=== PATIENT | female | born 1965 | race Caucasian/White ===

== ENCOUNTER 2017-02-26 21:19 | Inpatient (IN) | payer MEDICAID, OTHER ==
[~2017-02-26] VITALS: Ht 157.5 cm; Wt 89.8 kg
[~2017-02-26 21:19] MED LIST: ALPR0.5T8 PO; AMLO-512 PO; AMOX500C2 PO; CITA10TA68 PO; GLIP5 PO; INSLAN SQ
[2017-02-26] MEDS ORDERED: SIMV-259 PO (21:27)
[2017-02-26] MEDS ORDERED: METF500T4 PO (21:27)
[2017-02-26] MEDS ORDERED: LISI-661 PO (21:27)
[2017-02-26 21:37] LABS: GLUCOSE,POINT OF CARE 342 MG/DL (70-110)
[2017-02-26 21:38] LABS: BASOPHILS % (AUTO) 0.7 % (0.0-2.0); EOSINOPHILS % (AUTO) 2.3 % (1.0-6.0); HEMATOCRIT 41.3 % (36-46); LYMPHOCYTES # (AUTO) 3.8 K/uL (1.0-4.8); LYMPHOCYTES % (AUTO) 37.2 % (22.0-44.0); MEAN CORPUSCULAR HEMOGLOBIN 28.5 pg (26.0-34.0); MEAN CORPUSCULAR HGB CONC 33.8 G/dL (31.0-37.0); MEAN CORPUSCULAR VOLUME 84 fL (80-100); MONOCYTES # (AUTO) 0.5 K/uL (0.1-1.0); MONOCYTES % (AUTO) 4.6 % (2.0-9.0); NEUTROPHILS # (AUTO) 5.7 K/uL (1.8-7.7); NEUTROPHILS % (AUTO) 55.2 % (40.0-70.0); PLATELET COUNT (AUTO) 387 K/uL (150-450); RED CELL DISTRIBUTION WIDTH 12.6 % (11.5-14.5); WHITE BLOOD COUNT (AUTO) 10.3 K/uL (4.5-11.0)
[2017-02-26 21:47] LABS: ANION GAP 10 mmol/L (8-16); CALCIUM, TOTAL 9.1 mg/dL (8.8-10.5); CARBON DIOXIDE 25 mmol/L (22-29); CHLORIDE 98 mmol/L (98-107); CREATININE 0.95 mg/dL (0.60-1.30); GLOMERULAR FILTR. RATE CALC > 60 mL/min (>60); POTASSIUM 3.4 mmol/L (3.5-5.1); SODIUM SERUM 133 mmol/L (136-145); UREA NITROGEN, BLOOD 14 mg/dL (7-18)
[2017-02-26 21:53] LABS: ALANINE AMINOTRANSFERASE 40 U/L (12-78); ALBUMIN 4.1 g/dL (3.4-5.0); ASPARTATE AMINOTRANSFERASE 23 U/L (15-37); BILIRUBIN,TOTAL 0.3 mg/dL (0.1-1.0); TOTAL PROTEIN, SERUM 7.6 g/dL (6.4-8.2)
[2017-02-26 21:54] LABS: ACETAMINOPHEN < 3 mcg/mL (10-30)
[2017-02-26 22:09] LABS: SALICYLATE < 2.8 mg/dL (2.8-20.0)
[2017-02-26] MEDS ORDERED: INSULIN REGULAR, HUMAN 100 UNITS/ML SQ ONE (22:30)
[2017-02-26] MEDS ORDERED: POTASSIUM CHLORIDE 10% 40 MEQ/30 ML LIQUID UDCUP PO ONE (22:30)
[2017-02-26] MEDS ORDERED: HALOPERIDOL 5 MG TABLET PO PRN (23:30)
[2017-02-26] MEDS ORDERED: ZOLPIDEM TARTRATE 10 MG TABLET PO PRN (23:30)
[2017-02-26 23:37] LABS: GLUCOSE COMMENT 1 Doctor Notified; GLUCOSE,POINT OF CARE 270 MG/DL (70-110)
[2017-02-27 00:54] VITALS: BP 124/70
[2017-02-27] MEDS ORDERED: PNEUMOCOCCAL VACCINE POLYVALENT 0.5 ML VIAL [PPSV23] IM ONE (03:15)
[2017-02-27] MEDS ORDERED: INFLUENZA VIRUS VACCINE QVS 2017-18 (3YR+)/PF 60 MCG/0.5 ML SYRINGE IM ONE (03:15)
[2017-02-27 06:33] LABS: GLUCOSE COMMENT 1 Doctor Notified; GLUCOSE,POINT OF CARE 171 MG/DL (70-110)
[2017-02-27] MEDS: MetFORMIN HCL 500 MG TABLET PO SCH ×2 (07:12→16:18)
[2017-02-27 08:07] LABS: CHOL/HDL RATIO 5.4 (3.9-5.7)
[2017-02-27 08:30] VITALS: BP 124/82
[2017-02-27] MEDS: SIMVASTATIN 10 MG TABLET PO SCH (08:54)
[2017-02-27] MEDS: LISINOPRIL 10 MG TABLET PO SCH (08:54)
[2017-02-27] MEDS: AmLODIPine BESYLATE 5 MG TABLET PO SCH (08:54)
[2017-02-27] MEDS: ESCITALOPRAM OXALATE 10 MG TABLET PO SCH (09:46)
[2017-02-27 16:16] VITALS: BP 118/66
[2017-02-27] MEDS: GlipiZIDE 10 MG TABLET PO SCH (16:18)
[2017-02-28 06:23] VITALS: BP 120/66
[2017-02-28] MEDS: GlipiZIDE 10 MG TABLET PO SCH ×2 (06:24→16:10)
[2017-02-28] MEDS: MetFORMIN HCL 500 MG TABLET PO SCH ×2 (06:40→16:38)
[2017-02-28 08:30] VITALS: BP 117/70
[2017-02-28 09:44] LABS: POTASSIUM 4.5 mmol/L (3.5-5.1); THYROID STIMULATING HORMONE 1.32 uIU/mL (0.36-3.74)
[2017-02-28] MEDS: ESCITALOPRAM OXALATE 10 MG TABLET PO SCH (09:57)
[2017-02-28] MEDS: LISINOPRIL 10 MG TABLET PO SCH (09:57)
[2017-02-28] MEDS: SIMVASTATIN 10 MG TABLET PO SCH (09:58)
[2017-02-28] MEDS: AmLODIPine BESYLATE 5 MG TABLET PO SCH (09:58)
[2017-02-28] MEDS: LORazepam 2 MG TABLET PO PRN ×2 (10:53→16:09)
[2017-02-28 16:15] VITALS: BP 109/65
[2017-02-28] MEDS: INSULIN DETEMIR 100 UNITS/ML SQ SCH (17:12)
[2017-02-28 17:17] LABS: GLUCOSE,POINT OF CARE 197 MG/DL (70-110)
[2017-03-01 06:19] VITALS: BP 117/68
[2017-03-01] MEDS: GlipiZIDE 10 MG TABLET PO SCH (06:35)
[2017-03-01] MEDS: MetFORMIN HCL 500 MG TABLET PO SCH (07:09)
[2017-03-01 08:47] VITALS: BP 139/76
[2017-03-01] MEDS: SIMVASTATIN 10 MG TABLET PO SCH (08:47)
[2017-03-01] MEDS: LISINOPRIL 10 MG TABLET PO SCH (08:47)
[2017-03-01] MEDS: ESCITALOPRAM OXALATE 10 MG TABLET PO SCH (08:47)
[2017-03-01] MEDS: AmLODIPine BESYLATE 5 MG TABLET PO SCH (08:47)
[2017-03-01] MEDS: INSULIN DETEMIR 100 UNITS/ML SQ SCH (08:52)
[2017-03-01 09:38] LABS: GLUCOSE,POINT OF CARE 357 MG/DL (70-110)
[2017-03-01] MEDS: LORazepam 2 MG TABLET PO PRN (12:54)
[2017-03-01] MEDS ORDERED: ESCI10TA PO (15:56)
[2017-03-01] MEDS ORDERED: INSULIN DETEMIR 100 UNITS/ML SQ SCH (17:00)
[2017-03-01 18:06] VITALS: BP 117/83
== END 2017-03-01 18:00 | disposition home or self-care (01) | DRG 751 ==
LOC: EMS 21:20 → B3A 23:19
PROVIDERS: ADMIT Psychiatry & Neurology Child & Adolescent Psychiatry; ATTEND Psychiatry & Neurology Child & Adolescent Psychiatry
PROC: 3E0234Z Introduction of Serum, Toxoid and Vaccine into Muscle, Percutaneous Approach (ICD-10-PCS; principal; 2017-02-27)
DX: F32.2 Major depressive disorder, single episode, severe without psychotic features (principal); E87.1 Hypo-osmolality and hyponatremia; I10 Essential (primary) hypertension; E11.65 Type 2 diabetes mellitus with hyperglycemia; E78.5 Hyperlipidemia, unspecified; E87.6 Hypokalemia; K21.9 Gastro-esophageal reflux disease without esophagitis; F41.9 Anxiety disorder, unspecified; T46.6X2A Poisoning by antihyperlipidemic and antiarteriosclerotic drugs, intentional self-harm, initial encounter; Z88.8 Allergy status to other drugs, medicaments and biological substances; Z79.899 Other long term (current) drug therapy; Y92.89 Other specified places as the place of occurrence of the external cause; Z90.49 Acquired absence of other specified parts of digestive tract; Z98.891 History of uterine scar from previous surgery; Z23 Encounter for immunization
CPT/HCPCS: 82962; 83036; 84132; 84436; 84439; 84443; 90471; 93005; 96372; 99285; G0480; G0481; J1815

== ENCOUNTER 2018-01-16 09:31 | Emergency (ER) | payer MEDICAID ==
[~2018-01-16] VITALS: Ht 157.5 cm; Wt 81.8 kg
[~2018-01-16 09:31] MED LIST changes: -ALPR0.5T8 PO; -AMOX500C2 PO; -CITA10TA68 PO; +ESCI10TA PO; +LISI-661 PO; +METF-960 PO; +SIMV-259 PO
[2018-01-16 09:32] VITALS: BP 146/86
[2018-01-16] MEDS ORDERED: GABA-531 PO (09:36)
[2018-01-16] MEDS ORDERED: ALPR0.255 PO (09:36)
[2018-01-16] MEDS ORDERED: SUCR1TAB PO (09:36)
[2018-01-16 09:56] LABS: BASOPHILS % (AUTO) 1.2 % (0.0-2.0); EOSINOPHILS % (AUTO) 1.3 % (1.0-6.0); HEMATOCRIT 40.3 % (36-46); HEMOGLOBIN 14.2 g/dL (12.0-16.0); LYMPHOCYTES # (AUTO) 3.2 K/uL (1.0-4.8); LYMPHOCYTES % (AUTO) 36.4 % (22.0-44.0); MEAN CORPUSCULAR HEMOGLOBIN 29.9 pg (26.0-34.0); MEAN CORPUSCULAR HGB CONC 35.2 G/dL (31.0-37.0); MEAN CORPUSCULAR VOLUME 85 fL (80-100); MONOCYTES # (AUTO) 0.7 K/uL (0.1-1.0); MONOCYTES % (AUTO) 7.3 % (2.0-9.0); NEUTROPHILS # (AUTO) 4.8 K/uL (1.8-7.7); NEUTROPHILS % (AUTO) 53.8 % (40.0-70.0); PLATELET COUNT (AUTO) 375 K/uL (150-450); RED BLOOD CELL COUNT(AUTO) 4.73 MIL/uL (4.00-5.20); RED CELL DISTRIBUTION WIDTH 13.1 % (11.5-14.5)
[2018-01-16 10:15] LABS: ANION GAP 12 mmol/L (8-16); CALCIUM, TOTAL 9.5 mg/dL (8.8-10.5); CARBON DIOXIDE 25 mmol/L (22-29); CHLORIDE 101 mmol/L (98-107); CREATININE 0.79 mg/dL (0.60-1.30); GLOMERULAR FILTR. RATE CALC > 60 mL/min (>60); GLUCOSE,RANDOM 294 mg/dL (70-110); POTASSIUM 4.1 mmol/L (3.5-5.1); SODIUM SERUM 138 mmol/L (136-145); UREA NITROGEN, BLOOD 12 mg/dL (7-18)
[2018-01-16 10:21] LABS: ALANINE AMINOTRANSFERASE 42 U/L (12-78); ALBUMIN 3.9 g/dL (3.4-5.0); ALKALINE PHOSPHATASE 98 U/L (46-116); ASPARTATE AMINOTRANSFERASE 28 U/L (15-37); BILIRUBIN,TOTAL 0.5 mg/dL (0.1-1.0); LIPASE 296 U/L (73-393); TOTAL PROTEIN, SERUM 8.2 g/dL (6.4-8.2)
[2018-01-16 11:26] LABS: GLUCOSE,POINT OF CARE 281 MG/DL (70-110)
== END 2018-01-16 11:58 | disposition left against medical advice (07) ==
LOC: EMS 09:32
DX: R11.2 Nausea with vomiting, unspecified (principal); R10.10 Upper abdominal pain, unspecified; R19.7 Diarrhea, unspecified; E11.9 Type 2 diabetes mellitus without complications; K21.9 Gastro-esophageal reflux disease without esophagitis; I10 Essential (primary) hypertension; F41.9 Anxiety disorder, unspecified; F32.9 Major depressive disorder, single episode, unspecified; Z90.49 Acquired absence of other specified parts of digestive tract; Z53.21 Procedure and treatment not carried out due to patient leaving prior to being seen by health care provider
CPT/HCPCS: 93005